=== PATIENT | female | born 1995 | race African-American/Black ===

== ENCOUNTER → 2020-01-16 | Emergency (ER) | payer OTHER, SELFPAY ==
[~2020-01-16] MED LIST: diphenhydrAMINE 25 MG CAP ONE
== END ==
LOC: ERS 16:18
DX: O9A.211 Injury, poisoning and certain other consequences of external causes complicating pregnancy, first trimester (principal); T63.441A Toxic effect of venom of bees, accidental (unintentional), initial encounter; Z3A.12 12 weeks gestation of pregnancy
CPT/HCPCS: 99282; Q0163

== ENCOUNTER 2020-01-17 09:44 | Emergency (ER) | payer OTHER | END 2020-01-17 10:10 | disposition home or self-care (01) | LOC: ERS 09:44 | DX: T63.441A Toxic effect of venom of bees, accidental (unintentional), initial encounter (principal) | CPT/HCPCS: 99282 ==

== ENCOUNTER 2020-04-05 08:31 | Outpatient (CLI) | payer OTHER ==
--- NOTE | 2020-04-05 11:14 | ULT ---
OB ULTRASOUND GREATER THAN 14 WEEKS COMPLETE: HISTORY: anatomy, cervical length. FINDINGS: Single viable intrauterine fetus noted in vertex presentation. The placenta is anterior. Amniotic f luid is within normal limits. heart rate 143 b.p.m. Cervical length 5.1 cm. Anatomy: Visualized brain, 4-chamber heart, 3-vessel cord, stomach, bladder, kidneys, spine, and extremi ties are unremarkable. Biometry: BPD 5.8 cm-23 weeks 5 days Head circumference 21.5 cm-23 weeks 4 days Abdominal circumference 18.4 cm-22 weeks 2 days Femur length 4.2 cm-22 weeks 6 days IMPRESSION: 1. Single viable intrauterine fetus at 23 weeks 5 days. 2. Estimated date of delivery 07/28/2020. 3. Estimated weight 599 grams. POS: [facility]
== END 2020-04-05 08:32 | disposition home or self-care (01) ==
LOC: BICULT 08:31
PROVIDERS: ATTEND Family Medicine
DX: Z34.82 Encounter for supervision of other normal pregnancy, second trimester (principal); Z3A.23 23 weeks gestation of pregnancy
CPT/HCPCS: 76805

== ENCOUNTER 2020-07-22 13:32 | Outpatient (CLI) | payer OTHER ==
[2020-07-23 13:03] LABS: SARS-CoV-2 MS2 Positive; SARS-CoV-2 N Gene Negative; SARS-CoV-2 S Gene Negative; SARS-CoV-2 by NAA Not Detected (NotDetected); SARS-CoV-2 orf1ab Negative
== END 2020-07-22 13:33 | disposition home or self-care (01) ==
LOC: LABSCS 13:32
PROVIDERS: ATTEND Family Medicine
DX: Z20.828 Contact with and (suspected) exposure to other viral communicable diseases (principal)
CPT/HCPCS: 87635; U0003

== ENCOUNTER 2020-07-25 19:45 | Inpatient (IN) | payer OTHER ==
[2020-07-26 07:56] VITALS: BMI 36.0
[2020-07-26] MEDS: Lactated Ringer's 1,000 ML IV SCH ×2 (08:11→16:53)
[2020-07-26] MEDS ORDERED: Misoprostol 100 MCG TAB ONE (08:26)
[2020-07-26] MEDS: Misoprostol 100 MCG TAB PO SCH ×3 (08:29→19:26)
[2020-07-26] MEDS ORDERED: Promethazine HCl 25 MG/ML VIAL IM PRN ×2 (08:58→18:07)
[2020-07-26] MEDS ORDERED: Methylergonovine 0.2 MG/ML VIAL IM PRN (08:58)
[2020-07-26] MEDS ORDERED: NS / Oxytocin 40 units/1000ml 1,000 ML IV PRN (08:58)
[2020-07-26] MEDS ORDERED: Misoprostol 200 MCG TAB PR PRN (08:58)
[2020-07-26] MEDS ORDERED: Butorphanol Tartrate 1 MG/ML VIAL SLOW IVP PRN (08:58)
[2020-07-26] MEDS ORDERED: hydrALAZINE 20 MG/ML VIAL SLOW IVP PRN (08:58)
[2020-07-26] MEDS ORDERED: NS w/ Oxytocin 10 units 500 ML IV SCH (08:58)
[2020-07-26] MEDS ORDERED: Carboprost 250 MCG/ML AMP IM PRN (08:58)
[2020-07-26] MEDS ORDERED: Ibuprofen 800 MG TAB PO PRN (08:58)
[2020-07-26] MEDS ORDERED: Penicillin G Potassium 5 MILL.UNITS in Sodium Chloride 0.9% 100 ML IVPB SCH (08:58)
[2020-07-26] MEDS ORDERED: Diphenoxylate HCl/Atropine Tablet PO PRN (08:58)
[2020-07-26] MEDS ORDERED: Lidocaine 1% (PF) 30 ML VIAL SC PRN (08:58)
[2020-07-26] MEDS ORDERED: Ondansetron PF 4 MG/2 ML Vial IVP PRN ×2 (08:58→18:07)
[2020-07-26] MEDS ORDERED: HYDROcodone/Acetaminophen 5/325 mg Tablet PO PRN (08:58)
[2020-07-26 09:20] LABS: Hemoglobin 10.4 g/dL (12.0-16.0); Mean Corpuscular HGB CONC 33.1 g/dL (32.0-36.0); Mean Corpuscular Hemoglobin 30.6 pg (27.0-31.0); Mean Corpuscular Volume 92.6 fL (78.0-98.0); Mean Platelet Volume 9.4 fL (7.4-10.4); Platelet Count 194 thou/uL (130-400); RBC Distribution Width 12.6 % (11.5-14.5); Red Blood Cell (RBC) Count 3.41 mill/uL (4.20-5.40); White Blood Cell (WBC) Count 12.7 thou/uL (4.8-10.8)
[2020-07-26 09:55] LABS: HBSAg Index 0.18 S/CO (0-0.99); Hep B Surf Ag Non-Reactive S/CO (NonReactive); Syphilis Antibody Nonreactive (Nonreactive); Syphilis Antibody Index 0.03 S/CO (<1.00 Non-Reactive)
[2020-07-26] MEDS ORDERED: Fentanyl 4 mcg/Bup 0.1% Cadd 100 ML ONE (17:21)
[2020-07-26] MEDS ORDERED: EPHEDRINE 25 MG/5 ML SYRINGE SLOW IVP PRN (18:07)
[2020-07-26] MEDS ORDERED: Acetaminophen 325 MG TAB PO PRN (18:07)
[2020-07-26] MEDS ORDERED: diphenhydrAMINE 50 MG/ML VIAL IVP PRN (18:07)
[2020-07-26] MEDS ORDERED: Naloxone HCl 0.4 mg/ml Vial IVP PRN ×2 (18:07)
[2020-07-26] MEDS ORDERED: Lactated Ringer's 500 ML IV PRN (18:07)
[2020-07-26] MEDS ORDERED: Communication Order-Pharmacy FS SCH (18:15)
[2020-07-26] MEDS ORDERED: Fentanyl 4 mcg/Bupivacaine 0.1% Cassette 100 ML EPIDURAL SCH (18:15)
[2020-07-26] MEDS: NS w/ Oxytocin 10 units 500 ML IV SCH ×2 (19:25→20:50)
[2020-07-26] MEDS: Penicillin G 2.5 MILL.units 2.5 MILL.UNITS in Premix Bag 1 BAG IVPB SCH ×2 (19:29→21:44)
[2020-07-26] MEDS ORDERED: Lidocaine 1% (PF) 30 ML VIAL ONE (23:56)
[2020-07-26] MEDS ORDERED: NS / Oxytocin 40 units/1000ml 1,000 ML ONE (23:56)
[2020-07-27] MEDS: Lactated Ringer's 1,000 ML IV SCH (01:59)
[2020-07-27] MEDS: Penicillin G 2.5 MILL.units 2.5 MILL.UNITS in Premix Bag 1 BAG IVPB SCH (02:00)
[2020-07-27] MEDS ORDERED: Milk Of Magnesia 30 ML UDCUP PO PRN (03:48)
[2020-07-27] MEDS ORDERED: Ondansetron PF 4 MG/2 ML Vial IVP PRN (03:48)
[2020-07-27] MEDS ORDERED: Benzocaine-Menthol 82.5 ML CAN TOP PRN (03:48)
[2020-07-27] MEDS ORDERED: NS / Oxytocin 40 units/1000ml 1,000 ML IV SCH (03:48)
[2020-07-27] MEDS ORDERED: hydrALAZINE 20 MG/ML VIAL SLOW IVP PRN (03:48)
[2020-07-27] MEDS ORDERED: HYDROcodone/Acetaminophen 5/325 mg Tablet PO PRN ×2 (03:48)
[2020-07-27] MEDS ORDERED: Lanolin Ointment 7 GM TUBE TOP PRN (03:48)
[2020-07-27] MEDS ORDERED: Bisacodyl 10 MG SUPP PR PRN (03:48)
[2020-07-27] MEDS ORDERED: diphenhydrAMINE 25 MG CAP PO PRN (03:48)
[2020-07-27] MEDS: Ibuprofen 800 MG TAB PO SCH ×3 (05:14→22:06)
[2020-07-27] MEDS: Ferrous Sulfate 325 MG TAB PO SCH ×2 (08:52→19:06)
[2020-07-27] MEDS ORDERED: Adacel (T-DAP) 0.5 ML SYRINGE IM ONE (09:00)
[2020-07-27] MEDS: Docusate Calcium (SURFAK) 240 MG CAP PO SCH ×2 (09:42→22:06)
[2020-07-27] MEDS: Prenatal Vitamin 1 TAB PO SCH (09:42)
[2020-07-28] MEDS: Ibuprofen 800 MG TAB PO SCH ×2 (05:51→14:19)
[2020-07-28 06:17] LABS: Hemoglobin 10.3 g/dL (12.0-16.0); Mean Corpuscular HGB CONC 31.9 g/dL (32.0-36.0); Mean Corpuscular Hemoglobin 30.2 pg (27.0-31.0); Mean Corpuscular Volume 94.5 fL (78.0-98.0); Mean Platelet Volume 8.7 fL (7.4-10.4); Platelet Count 159 thou/uL (130-400); RBC Distribution Width 12.9 % (11.5-14.5); Red Blood Cell (RBC) Count 3.43 mill/uL (4.20-5.40); White Blood Cell (WBC) Count 12.3 thou/uL (4.8-10.8)
[2020-07-28] MEDS: Ferrous Sulfate 325 MG TAB PO SCH ×2 (09:08→14:21)
[2020-07-28] MEDS: Docusate Calcium (SURFAK) 240 MG CAP PO SCH (09:10)
[2020-07-28] MEDS: Prenatal Vitamin 1 TAB PO SCH (09:10)
[2020-07-28 09:34] VITALS: TEMP 98.2
[2020-07-28 12:24] VITALS: BP 123/83
== END 2020-07-28 17:10 | disposition home or self-care (01) | DRG 807 ==
LOC: L&D 07-26 07:19 → 3SE 07-27 04:31
PROVIDERS: ADMIT Family Medicine; ATTEND Family Medicine
PROC: 10E0XZZ Delivery of Products of Conception, External Approach (ICD-10-PCS; principal; 2020-07-27)
PROC: 0HQ9XZZ Repair Perineum Skin, External Approach (ICD-10-PCS; 2020-07-27)
DX: O70.0 First degree perineal laceration during delivery (principal); Z37.0 Single live birth; Z3A.39 39 weeks gestation of pregnancy; Z11.59 Encounter for screening for other viral diseases
CPT/HCPCS: 36415; 51702; 85027; 86780; 86850; 86900; 86901; 87340; 90715; J2001; J2590

== ENCOUNTER 2022-09-07 20:28 | Emergency (ER) | payer OTHER ==
[2022-09-07] MEDS ORDERED: Ondansetron ODT 4 MG TAB ONE (22:18)
[2022-09-07] MEDS ORDERED: Acetaminophen 500 MG TAB ONE (22:18)
[2022-09-07 22:52] LABS: Bacteria/HPF 4+ HPF (None Seen); Bilirubin Negative (Negative); Blood, Urine Negative (Negative); Clarity Turbid (Clear); Glucose, Urine (Dipstick) Normal (Negative); Ketone, Urine 60 mg/dL (Negative); Leukocyte 500 Leu/uL (Negative); Nitrite Negative (Negative); Pregnancy Test - Urine (BHCG) Negative (Negative); Pregu Control Background? CLEAR/WHITE (CLR/WHITE); Pregu Control Bar Appear? YES (CONTROL BAR); Protein, Urine (Dipstick) 20 mg/dL (Neg-Trace); Specific Gravity 1.032 (1.002-1.036); Specific Gravity, Urine 1.032 (1.002-1.036); Urobilinogen Normal mg/dL (Less than 2)
== END 2022-09-07 23:41 | disposition home or self-care (01) ==
LOC: ERS 20:28
DX: R50.9 Fever, unspecified (principal); N39.0 Urinary tract infection, site not specified
CPT/HCPCS: 81003; 81015; 81025; 87086; 87804; 99283; Q0162

== ENCOUNTER 2022-09-25 12:00 | Emergency (ER) | payer OTHER ==
[2022-09-25 12:32] LABS: #Monocytes 0.6 thou/uL (0.11-0.59); #Neutrophils 7.2 thou/uL (1.40-6.50); %Basophils 0.4 % (0.0-1.0); %Eosinophils 0.2 % (0.0-10.0); %Lymphocytes 11.8 % (21.0-51.0); %Monocytes 6.3 % (0.0-10.0); %Neutrophils 81.4 % (42.0-75.0); Hemoglobin 12.9 g/dL (12.0-16.0); Mean Corpuscular HGB CONC 32.7 g/dL (32.0-36.0); Mean Corpuscular Hemoglobin 31.4 pg (27.0-31.0); Mean Corpuscular Volume 95.8 fl (78.0-98.0); Mean Platelet Volume 8.4 fL (7.4-10.4); Platelet Count 209 10x3/uL (130-400); Red Blood Cell (RBC) Count 4.12 mill/uL (4.20-5.40); White Blood Cell (WBC) Count 8.8 10x3/uL (4.8-10.8)
[2022-09-25 12:48] LABS: BHCG - Serum Negative (NEGATIVE); Pregs Control Background? CLEAR/WHITE (CLR/WHITE); Pregs Control Bar Appear? YES (CONTROL BAR)
[2022-09-25 12:51] LABS: ALT (SGPT) 8 U/L (8-55); AST (SGOT) 14 U/L (5-34); Albumin 3.9 g/dL (3.5-5.0); Alkaline Phosphatase 69 U/L (40-110); Anion Gap 13 mmol/L (10-20); BUN (Urea Nitrogen) 9 mg/dL (7.0-18.7); Bilirubin, Total 0.9 mg/dL (0.2-1.2); Calc. Creatinine Clearance 0 mL/min (70-130); Calcium 8.9 mg/dL (7.8-10.44); Carbon Dioxide 24 mmol/L (22-29); Chloride 102 mmol/L (98-107); Estimated GFR 124; Globulin 3.3 g/dL (2.4-3.5); Glucose 86 mg/dL (70-105); Lipase 10 U/L (8-78); Potassium 3.5 mmol/L (3.5-5.1); Protein, Total 7.2 g/dL (6.0-8.3); Sodium 135 mmol/L (136-145)
[2022-09-25] MEDS ORDERED: Dicyclomine 20 MG/2 ML VIAL ONE (15:34)
[2022-09-25] MEDS ORDERED: Ondansetron ODT 8 MG TAB ONE (15:34)
[2022-09-25 15:53] LABS: Bilirubin Negative (Negative); Blood, Urine Negative (Negative); Clarity Clear (Clear); Glucose, Urine (Dipstick) Normal (Negative); Ketone, Urine 60 mg/dL (Negative); Leukocyte 75 Leu/uL (Negative); Nitrite Negative (Negative); Protein, Urine (Dipstick) 20 mg/dL (Neg-Trace); Specific Gravity, Urine 1.033 (1.002-1.036); Urobilinogen 3 mg/dL (Less than 2); pH, Urine 6.5 (5.0-9.0)
[2022-09-25 15:55] LABS: Bacteria/HPF Rare-Few HPF (None Seen)
== END 2022-09-25 15:42 | disposition home or self-care (01) ==
LOC: ERS 12:00
DX: A08.4 Viral intestinal infection, unspecified (principal)
CPT/HCPCS: 36415; 80053; 81003; 81015; 83690; 84703; 85025; 99284; Q0162

== ENCOUNTER 2023-08-10 08:16 | Emergency (ER) | payer OTHER | END 2023-08-10 09:42 | disposition home or self-care (01) | LOC: ERS 08:16 | DX: G51.0 Bell's palsy (principal); R51.9 Headache, unspecified | CPT/HCPCS: 99283 ==